=== PATIENT | female | born 1935 | race Caucasian/White ===

== ENCOUNTER 2018-05-02 11:48 | Inpatient (IN) ==
[2018-05-02] MEDS ORDERED: Glycopyrrolate Inj 1 MG/5 ML Syringe IV.PUSH ONE (12:00)
[2018-05-02] MEDS ORDERED: Neostigmine Inj 5 MG/5 ML Syringe IV.PUSH ONE (12:00)
[2018-05-02] MEDS ORDERED: Lidocaine PF 1% Inj 5 ML Syringe INFILTRATN ONE (12:00)
[2018-05-02] MEDS ORDERED: Phenylephrine/NS 1000 MCG/10ML Syringe IV.PUSH ONE (12:00)
[2018-05-02] MEDS ORDERED: Metoprolol Tartrate 25 MG Tablet PO SCH (12:45)
[2018-05-02] MEDS ORDERED: Chlorhexidine Gluconate 2% 1 Pack (2 Cloths) TOPICAL SCH (12:45)
[2018-05-02] MEDS ORDERED: ceFAZolin 2 GM Premix Inj 2 GM/100 ML BAG IV.SIG SCH (13:00)
[2018-05-02] MEDS ORDERED: Chlorhexidine 4% Topical 120 APPLIC/120 ML Bottle TOPICAL SCH (13:00)
[2018-05-02] MEDS ORDERED: Sodium Chlor 0.9% Inj 500 ML IV.SIG SCH (13:00)
[2018-05-02] MEDS ORDERED: Vancomycin Inj 1,000 MG in Sodium Chlor 0.9% Inj 250 ML IV.SIG SCH (13:00)
[2018-05-02] MEDS ORDERED: Famotidine PF Inj 20 MG/2 ML Vial ONE (13:32)
[2018-05-02] MEDS ORDERED: fentaNYL Citrate Inj 250 MCG/5 ML Ampul ONE (13:32)
[2018-05-02] MEDS ORDERED: fentaNYL Citrate Inj 100 MCG/2 ML Ampul ONE (13:32)
[2018-05-02] MEDS ORDERED: Ketamine Inj 50 MG/5 ML Syringe IV.PUSH ONE (13:53)
--- NOTE | 2018-05-02 16:54 | P.BOP ---
Date of procedure: 05/02/18 Procedure: R THR Anesthesia: GETA Surgeon: Jeet Tracy MD Cost Estimating Manager: Elle Dyson Estimated blood loss (mL): 200 Pathology: none sent Condition: stable Disposition: PACU
[2018-05-02] MEDS ORDERED: Zolpidem Tartrate 5 MG Tablet PO PRN (17:08)
[2018-05-02] MEDS ORDERED: Bisacodyl 10 MG Supp RECTAL PRN (17:08)
[2018-05-02] MEDS ORDERED: Morphine Inj 4 MG/ML Vial IV.PUSH PRN (17:08)
[2018-05-02] MEDS ORDERED: Post-op Orders (for Pharmacy) OTHER STA (17:08)
--- NOTE | 2018-05-02 17:14 | P.DCO ---
- Physical Therapy Physical Therapy: Gait training, Transfer training, bed to chair Hip: Total hip, Protocol: Right, Posterior hip precautions Canvas Knee Splint: When in bed with 2 pillows between thighs Right Lower Extremity Weight Bearing: Weight bearing as tolerated Left Lower Extremity Weight Bearing: Weight bearing as tolerated - Nursing RN: 3 days/week x 2 weeks Nursing: Dressing changes (clean incision with alcohol and apply dry sterile dressing ) - Certification Need for Home Health services: I have seen patient Letha Reagan on 05/02/18. My clinical findings support the need for the requested home health care services because: Need for Home Health Services: Deconditioned with increased weakness Homebound Certification: I certify that my clinical findings support that this patient is homebound because: Homebound Certification: Post-op weakness
[2018-05-02] MEDS ORDERED: *Meperidine Inj 25 MG/ML Vial PERIprocedural Use ONLY ONE (17:30)
[2018-05-02] MEDS ORDERED: *morphine SULFATE 4 MG/ML PERIprocedure ONLY ONE (17:41)
[2018-05-02] MEDS ORDERED: *Ondansetron Inj 4 MG/2 ML Vial PERIprocedural Use ONLY ONE (17:49)
--- NOTE | 2018-05-02 18:11 | XR ---
EXAM DATE: 05/02/2018 6:06 PM EDT AGE/SEX: 82 years / Female INDICATIONS: Post op right hip. CLINICAL DATA: This is the patient's initial encounter. Patient reports that signs and symptoms have been present for 1 day and indicates a pain score of Nonresponsive. MEDICAL/SURGICAL HISTORY: None. None. COMPARISON: TLI, XR HIP W/ AP PELVIS, BILATERAL, 03/16/2018. . FINDINGS: There is a bipolar hip prosthesis seen on the right. This appears well placed. Air seen in the soft t issues. No acute fracture is seen. CONCLUSION: Good placement of a right bipolar hip prosthesis. Electronically signed by: Rudy Jamison MD 05/02/2018 6:10 PM EDT
[2018-05-02] MEDS ORDERED: *Promethazine Inj 25 MG/ML Vial PERIprocedural use ONLY ONE (18:30)
--- NOTE | 2018-05-02 19:21 | MP ---
cc: Jeet Tracy MD, Mark MD DATE OF OPERATION: 05/02/2018 PREOPERATIVE DIAGNOSES: Right hip severe osteoarthritis, acetabular dysplasia. POSTOPERATIVE DIAGNOSES: Right hip severe osteoarthritis, acetabular dysplasia. PROCEDURE PERFORMED: Right total hip arthroplasty. SURGEON: Jeet Tracy MD TRAFFIC II MANAGER: Elle Dyson PA-C ANESTHESIA: General. SPECIMEN: Right hip. ESTIMATED BLOOD LOSS: 200 mL. COMPLICATIONS: None. PLAN: Activities per orders. NOTE: My anesthesiologist assistant certified, Elle Dyson PA-C, was present for the entire surgical case. She was medically necessary for the entire case because of the complexity of the case and to facilitate the performance of the procedure. The ADMINISTRATIVE SUPERVISOR at the back table was not of the skill set for this case to manipulate the instruments, e.g. multiple types of soft tissue retractors, trial implants and permanent implants. PROCEDURE DETAILS: The patient was brought in the operating room and had satisfactory anesthesia by Dr. Jackson of the department of anesthesia. The patient was carefully transferred into the lateral decubitus position. All pressure points were well padded. The right hip and lower extremity were prepped and draped in the usual sterile manner. Small posterolateral exposure to the hip was made. All bleeders were coagulated. Dissection was carried through skin and subcutaneous tissue. The fascia margarita and gluteus brianna were incised in line with the skin incision. A Rudy Carlson retractor was placed in the wound in order to allow better exposure. Great care was made to protect the sciatic nerve throughout the entire operative procedure. The short external rotators were moved as a group and the capsulotomy was performed and the hip was dislocated posteriorly. The patient was found to have severe osteoarthritis involving the hip joint itself. Osteotomy was made on the femoral neck. This was removed from the operative field. Exposure to the acetabulum was made. The patient was found to have calcification within the labrum. The capsule and labrum were surgically excised. Hemispherical reamers were then used to prepare the bony portion of the acetabulum and sequentially ream to medialize the acetabulum and then also widen the acetabulum to the subchondral plate. A 50 mm press-fit bicentric cup was found to be very stable and satisfactory. This was removed without difficulty. Attention was now brought to the proximal femur. Using the [employer] system, it was sequentially broached to a #10 broach with a standard offset. A trial reduction was made with the 0 neck, 28 mm head. The hip was reduced. The patient was found to have satisfactory limb lengths, satisfactory stability and satisfactory range of motion. The hip again was dislocated posteriorly and all trial components were removed. The wound was then irrigated with copious amounts of sterile saline and antibiotic solution. The wound itself was dry. The +10 standard offset stem was placed in anatomic position with approximately 15-20 degrees of anteversion. The patient found to have an excellent "fit and fill" involving the femoral canal. The 0 neck, 28 mm ball was then assembled onto the trunnion. The hip was then reduced. Again, the patient was found to have satisfactory limb lengths, satisfactory stability and satisfactory range of motion. The short external rotators were repaired back to the greater trochanter with drill holes using #2 Ti-Cron suture. The fascia margarita and gluteus brianna were repaired using #2 Ti-Cron suture. The subcutaneous tissue was closed in layers using 0 Vicryl and 2-0 Vicryl and the skin was approximated with running subcuticular 2-0 nylon stitch. The instrument, sponge and sharp counts were correct at the end of the operation. The patient tolerated the procedure well and went to the recovery room in stable and satisfactory condition. MD SUREKHA Caldera/mauro , 05:01 PM , 05:15 PM
[2018-05-02] MEDS: Senna/Docusate Sodium 8.6/50 MG Tablet PO SCH (22:00)
[2018-05-03 06:31] LABS: Hematocrit 31.9 % (35.0-46.0); Hemoglobin 10.6 gm/dL (11.6-15.3)
--- NOTE | 2018-05-03 06:54 | P.PNOP ---
Subjective Interval history: POD# 1 R THR C/O post op pain No SOB/no chest pain Physical Exam Vital signs: Vital Signs 05/02/18 13:33 05/02/18 17:12 05/02/18 17:15 Temperature 97.4 F L 98 F Pulse Rate 79 80 80 Respiratory Rate 18 20 18 Blood Pressure 155/74 H 132/89 135/83 Pulse Oximetry 95 98 98 05/02/18 17:30 05/02/18 17:45 05/02/18 18:00 Temperature Pulse Rate 66 64 68 Respiratory Rate 20 18 20 Blood Pressure 137/91 H 138/77 138/64 Pulse Oximetry 98 97 97 05/02/18 18:30 05/02/18 18:45 05/02/18 20:00 Temperature 98 F Pulse Rate 66 72 83 Respiratory Rate 18 20 18 Blood Pressure 144/60 H 141/65 H 115/56 L Pulse Oximetry 98 98 94 L 05/03/18 00:00 05/03/18 03:39 Temperature 98.3 F 99.0 F Pulse Rate 85 Respiratory Rate 18 17 Blood Pressure 133/66 147/67 H Pulse Oximetry 94 L 95 Intake & Output 05/02/18 05/02/18 05/03/18 06:59 18:59 06:59 Intake Total 1050 / 1050 100 / 100 Output Total 200 / 200 Balance 850 / 850 100 / 100 Weight 65.6 kg Intake: IV 350 / 350 100 / 100 Vancomycin Inj 1,000 MG In NS 250 / 250 Inj 250 ML @ 250 mls/hr IV.SIG [employer] WILLIAM Rx#:[id number] Ancef 2 GM Premix Inj 2 gm In 100 / 100 100 ml @ 100 mls/hr IV.SIG [employer] [facility] WILLIAM Rx#:[id number] Ancef Inj 1,000 MG In NS Inj 100 / 100 100 ML @ 200 mls/hr IV.SIG Q6H WILLIAM Rx#:[id number] Anesthesia Amount 700 / 700 Output: Estimated Blood Loss 200 / 200 Other: Date of Last Bowel Movement 05/02/18 Weight On Admission 65.6 kg - Routine HEENT Exam Comments: N/V intact No calf tenderness;neg javier's No LLD Results - Labs CBC & Chem 7: 05/03/18 04:49 Laboratory Results - last 24 hr 05/02/18 05/03/18 13:25 04:49 Hgb 10.6 L Hct 31.9 L Blood Type A Positive Antibody Screen Negative MTS Gel Crossmatch See Detail - Imaging Impressions Hip X-Ray 05/02/18 17:07 CONCLUSION: Good placement of a right bipolar hip prosthesis. Assessment and Plan - Ortho Post Op Day # 1 - Problem List (1) Osteoarthritis of right hip Code(s): M16.11 - Unilateral primary osteoarthritis, right hip Status: Acute - Assessment and Plan Ortho stable PT/Rehab C PT/RN Aspirin 81mg BID x 4 weeks,TEDS for DVT/PE prophylaxsis
[2018-05-03] MEDS: Levothyroxine 75 MCG Tablet PO SCH (07:39)
[2018-05-03] MEDS: Lisinopril 20 MG Tablet PO SCH (08:52)
[2018-05-03] MEDS: amLODIPine 10 MG Tablet PO SCH (08:52)
[2018-05-03] MEDS: Senna/Docusate Sodium 8.6/50 MG Tablet PO SCH ×2 (08:52→21:54)
[2018-05-03] MEDS: Psyllium Husk SF 3.4 GM in 5.8 GM Packet PO SCH (09:00)
[2018-05-04 04:29] LABS: Hematocrit 28.5 % (35.0-46.0); Hemoglobin 9.4 gm/dL (11.6-15.3)
[2018-05-04] MEDS: Levothyroxine 75 MCG Tablet PO SCH (07:37)
--- NOTE | 2018-05-04 07:39 | P.PNOP ---
Subjective Interval history: pt complains of post op right hip pain, not doing real well getting in and out of bed or to the bathroom Physical Exam Vital signs: Vital Signs 05/03/18 08:00 05/03/18 12:00 05/03/18 16:00 Temperature 98.7 F 98.5 F 98.4 F Pulse Rate 80 76 83 Respiratory Rate 16 16 16 Blood Pressure 133/66 117/55 L 112/60 Pulse Oximetry 95 93 L 93 L 05/03/18 20:00 05/04/18 00:00 05/04/18 04:00 Temperature 98.4 F 98.6 F 99.0 F Pulse Rate 87 88 86 Respiratory Rate 18 16 18 Blood Pressure 121/58 L 129/63 126/58 L Pulse Oximetry 94 L 97 93 L Intake & Output 05/03/18 05/04/18 05/04/18 18:59 06:59 18:59 Intake Total 480 / 480 340 / 340 Balance 480 / 480 340 / 340 Weight 65.6 kg Intake: IV 100 / 100 Oral 480 / 480 240 / 240 Other: # Voids 2 1 Date of Last Bowel Movement 05/02/18 Narrative: right hip dressing dry and intact, ice in place no calf tenderness canvas knee splint on leg +NVI Results - Labs CBC & Chem 7: 05/04/18 03:45 Laboratory Results - last 24 hr 05/04/18 03:45 Hgb 9.4 L Hct 28.5 L Assessment and Plan - Problem List (1) Osteoarthritis of right hip Code(s): M16.11 - Unilateral primary osteoarthritis, right hip Status: Acute - Assessment and Plan POD #2 s/p R CARMENCITA PT-WBAT Ortho stable PT/Rehab if patient is unable to be discharged home, will need to look into rehab for today Aspirin 81mg BID x 4 weeks, TEDS for DVT/PE prophylaxsis
[2018-05-04] MEDS: Lisinopril 20 MG Tablet PO SCH (10:54)
[2018-05-04] MEDS: amLODIPine 10 MG Tablet PO SCH (10:54)
[2018-05-04] MEDS: Senna/Docusate Sodium 8.6/50 MG Tablet PO SCH ×2 (10:54→21:59)
[2018-05-04] MEDS: Psyllium Husk SF 3.4 GM in 5.8 GM Packet PO SCH (10:55)
[2018-05-04] MEDS: Famotidine 20 MG Tablet PO PRN (15:36)
[2018-05-05] MEDS: Levothyroxine 75 MCG Tablet PO SCH (06:47)
[2018-05-05] MEDS: Senna/Docusate Sodium 8.6/50 MG Tablet PO SCH (08:41)
[2018-05-05] MEDS: amLODIPine 10 MG Tablet PO SCH (08:41)
[2018-05-05] MEDS: Lisinopril 20 MG Tablet PO SCH (08:41)
[2018-05-05] MEDS: Psyllium Husk SF 3.4 GM in 5.8 GM Packet PO SCH (08:41)
--- NOTE | 2018-05-05 09:45 | P.PNOP ---
Subjective Interval history: No c/o pain No chest pain;no SOB Physical Exam Vital signs: Vital Signs 05/04/18 12:00 05/04/18 16:00 05/04/18 20:00 Temperature 97.8 F 98.4 F 99.4 F Pulse Rate 79 81 89 Respiratory Rate 18 19 17 Blood Pressure 108/55 L 123/82 116/55 L Pulse Oximetry 94 L 92 L 97 05/05/18 00:00 05/05/18 04:00 05/05/18 08:00 Temperature 99.4 F 98.9 F 98.9 F Pulse Rate 77 80 79 Respiratory Rate 17 17 18 Blood Pressure 121/55 L 130/62 115/56 L Pulse Oximetry 98 98 93 L Intake & Output 05/04/18 05/05/18 05/05/18 18:59 06:59 18:59 Intake Total 960 / 960 Balance 960 / 960 Intake: Oral 960 / 960 Other: # Voids 4 Date of Last Bowel Movement 05/02/18 05/03/18 Narrative: N/V intact No LLD Wound healing well Negative javier's sign;no calf tenderness Results - Labs CBC & Chem 7: 05/04/18 03:45 Laboratory Results - last 24 hr 05/02/18 13:25 MTS Gel Crossmatch See Detail Assessment and Plan - Ortho Post Op Day # 3 - Problem List (1) Osteoarthritis of right hip Code(s): M16.11 - Unilateral primary osteoarthritis, right hip Status: Acute - Assessment and Plan POD #3 s/p R CARMENCITA PT-WBAT Ortho stable PT/Rehab Discharged home Aspirin 81mg BID x 4 weeks, TEDS for DVT/PE prophylaxsis
[2018-05-05] MEDS: Famotidine 20 MG Tablet PO PRN (12:17)
--- NOTE | 2018-06-01 13:30 | P.DS ---
Date of admission: 05/02/18 11:48 Primary care physician: Grant Christy MD, PhD Brief History from admission: 82 year old female presents with the following history. Patient had insidious onset of right hip pain six months ago. She has failed NSAIDs such as aleve and ibuprofen, she has used a walker and crutches for assistive ambulation, she has had exercise. She has had continued pain that is impacting her activities of daily living. She would like to proceed forward with surgical intervention to improve her quality of life. DS: Diagnosis - Discharge Diagnosis (1) Osteoarthritis of right hip Status: Acute DS: Medications - Discharge Medications Prescriptions: aspirin 81 mg PO BID #56 tab hydrocodone-acetaminophen 1 - 2 tab PO Q6H PRN #40 tab MDD 6 tablets in 24 hours PRN Reason: pain DS: Summary Hospital Course: 82 year old female underwent satisfactory anaesthesia on the date of admission. She underweight right hip arthroplasty. She did well with her surgery. She was started with full weight bearing ambulation and therapy on pod #1. She was treated with low dose aspirin 81 mg bid, knee high TEDs and sequentials during her stay and will be continued to be treated with the aspirin for four weeks to prevent DVT. She progressed well during her hospital stay. She was discharged home with home health care PT and nursing for further rehab on pod #3 in stable condition. - Time Spent with Patient Total time spent providing and/or coordinating discharge services: Less than 30 minutes - Quality: VTE Deep Vein Thrombosis/Pulmonary Embolism Present on Admission: No Results Procedures completed during hospitalization: Right hip arthroplasty - Impressions ITS Impressions Hip X-Ray 05/02/18 17:07 CONCLUSION: Good placement of a right bipolar hip prosthesis. Discharge Plan - Discharge Disposition Patient Disposition: Disch W/Home Health Service - Discharge Condition Condition: Stable - Discharge Order Discharge Orders: Discharge Order (Routine); Ordered 05/04/18 Ordered By: Elle Dyson - Discharge Details Anticipated Discharge Date: 05/04/18 - Physicians Team Primary Care Provider: Grant Christy Attending Provider: Jeet Tracy Other Providers: [facility],Agency - Rxs /Orders / Referrals /Forms Prescriptions: New aspirin 81 mg Tablet,Chewable 81 mg PO BID Qty: 56 RF: 0 hydrocodone-acetaminophen 5-325 mg Tablet 1 - 2 tab PO Q6H MDD 6 tablets in 24 hours PRN (Reason: pain) Qty: 40 RF: 0 Continue amlodipine-benazepril 10-20 mg Capsule 1 cap PO DAILY cholecalciferol (vitamin D3) [Vitamin D3] 1,000 unit Capsule 1,000 unit PO DAILY cyanocobalamin (vitamin B-12) [Vitamin B-12] 1,000 mcg Tablet 1,000 mcg PO DAILY levothyroxine 75 mcg Capsule 75 mcg PO DAILY meclizine 25 mg Tablet 25 mg PO DAILY PRN (Reason: Dizziness) psyllium husk [Metamucil] 3.4 gram/5.4 gram Powder 1 tbsp PO DAILY ranitidine HCl [Zantac 75] 75 mg Tablet 75 mg PO BID PRN (Reason: Abdominal Discomfort) vitamin B complex-folic acid [Super B Maxi Complex] 0.4 mg Tablet 1 tab PO DAILY Discontinued aspirin [Aspirin Low Dose] 81 mg Tablet,Delayed Release (Dr/Ec) 81 mg PO DAILY No Action methylprednisolone [Medrol (Robert)] 4 mg tablets,dose pack See Label Instructions PO PER PKG DIR Qty: 21 RF: 0 oxycodone-acetaminophen [Percocet] 5-325 mg tablet 1 tab PO Q6H PRN (Reason: pain) Qty: 10 RF: 0 Ambulatory Orders / Order Sets / DME: Bedside Commode (Routine) Location: Determined by Patient Ordered By: Elle Peterson With Front Wheels (1 each) (Routine) Location: Determined by Patient Ordered By: Elle Dyson Referrals: Grant Christy MD, PhD [Primary Care Provider] - See Instructions - Discharge Instructions Patient Printed Instructions: Hydrocodone/Acetaminophen (By mouth), Aspirin ( By mouth), How to Choose and Use a Walker (GEN), IMELDA Hose (DC), Total Hip Replacement (DC) Additional Instructions: Prescriptions for Hydrocodone provided at discharge Full weight bearing Follow up with Elle Dyson PA for Dr Tracy on 05/18 at 2:15 pm [facility] office Follow up with Elle on 06/01 at 2:45 pm [facility] office Follow up with Dr Tracy on 08/03 at 1:10 pm [facility] office - Post Discharge Care Plan Care Plan Goals: Discharge Care Plan Goals for Total Hip Replacement You had a hip replacement surgery. This means your natural hip was replaced with an artificial joint (prosthesis). You may be recovering at home or in a rehabilitation facility. Either way, you must take care of your new hip. Here are some goals to help you heal well. Directions to Meet your Goals: 1. Activity & Exercises: * Take pain medicine as directed by your doctor. * Dont drive until your doctor says its OK. And never drive while taking opioid pain medicine. * Wear the support stockings you were given in the hospital as directed by your surgeon. * Dont sit for more than 30 to 45 minutes at one time. * Dont lean forward while sitting. * Dont cross your legs. * Keep your feet flat on the floor. Dont turn your foot or leg inward. This stresses your hip joint. * Use an elevated toilet seat for 6 weeks after surgery. * Nap if you are tired, but dont stay in bed all day. * Sit on a firm cushion when you ride in a car and avoid sitting too low. Try not to bend your hip too much when getting in and out of the car. 2. Prevent Falls/Injury: * Follow your doctors orders regarding how much weight to put on the affected leg. * Dont bend at the hip when you bend over. Don't bend at the waist to put on socks and shoes. And avoid picking up items from the floor. * Use a cane, crutches, a walker, or handrails until your balance, flexibility, and strength improve. And remember to ask for help from others when you need it. * Free up your hands so that you can use them to keep balance. Use a medardo pack , apron, or pockets to carry things. * Arrange your household to keep the items you need handy. Keep everything else out of the way. * Remove items that may cause you to fall, such as throw rugs and electrical cords. * Use nonslip bath mats, grab bars, an elevated toilet seat, and a shower chair in your bathroom * Sit on a shower stool or chair when you shower to keep from falling. 3. Precautions: * Prevent infection. Any infection will need to be treated immediately. Call your doctor right away if you think you might have an infection. * Tell your dentist that you have an artificial joint and take antibiotics as prescribed before any dental work. * Tell all your healthcare providers about your artificial joint before any medical procedure. * Maintain a healthy weight. Get help to lose any extra pounds. Added body weight puts stress on the joints. 4. Incision Care: * Prevent infection by washing your hands often. If an infection occurs, it will need to be treated right away. * Call your doctor right away if you think you may have an infection. Symptoms include a fever or an incision that leaks white, green, or yellow fluid. * Don't soak your incision in water until your doctor says its OK. This means no hot tubs, bathtubs, or swimming pools. * Follow your doctor's instructions for changing the dressing. * Dont rub the incision, or apply creams or lotions to it. * If you notice any redness or drainage around the bandage site, contact your surgeon's office immediately. 5. Follow-Up: Do Not miss your follow-up appointment. Keep up with all your appointments and yearly check ups When to call your doctor: Call your doctor right away if you have: Hip pain gets worse Pain or swelling in your calf or leg not related to your incision Tenderness or redness in your calf Fever of 100.4F (38C) or higher, or as directed by your healthcare provider Shaking chills Swelling or redness at the incision site gets worse Fluid draining from the incision Call 911: Call 911 right away if you have: Chest pain Shortness of breath Any pain or tenderness in your calf
== END 2018-05-05 16:23 | disposition home health service (06) ==
LOC: HSDI 11:48 → N06 21:27
PROVIDERS: ADMIT Orthopaedic Surgery Orthopaedic Surgery of the Spine; ATTEND Orthopaedic Surgery Orthopaedic Surgery of the Spine